=== PATIENT | female | born 1975 | race Caucasian/White ===

== ENCOUNTER 2017-07-21 14:28 | Emergency (ER) | payer MEDICAID ==
[2017-07-21] MEDS ORDERED: KETOROLAC 30 MG/ML VIAL IVP ONE (15:01)
--- NOTE | 2017-07-21 15:03 | Emergency Department Record ---
History of Present Illness - General Chief complaint: Flank Pain Stated complaint: PAIN IN RT SIDE Time Seen by Provider: 07/21/17 14:50 Source: Patient Mode of Arrival: Ambulatory Limitations: No limitations - History of Present Illness Initial comments: 42 yo female presents with right side right upper quadrant pain for about one week. No fevers, cough, shortness of breath, vomiting, diarrhea, hematuria. The pain does mildly increase with eating. She is a smoker. No control. No changes in bowel movements. She is taking ibuprofen without improvement. No rash. No Flu like symptoms. She has noted the pain with changes in position and lifting at work but denies injury. MD Complaint: Other (RUQ side pain) Onset/Timin -: Days(s) Radiation: R flank Severity scale (1-10): 7 Quality: Aching, Sharp Consistency: Constant Improves with: Other Worsens with: Movement, Other Patient : No Associated Symptoms: Denies other symptoms - Related Data Previous Rx's Medication Instructions Recorded Cyclobenzaprine HCl [Flexeril] 5 mg PO TID #20 tab 07/21/17 Hydrocodone/Acetaminophen [Hudson 1 each PO Q8H #10 tablet 07/21/17 5-325 Tablet] Allergies Allergy/AdvReac Type Severity Reaction Status Date / Time No Known Drug Allergies Allergy Verified 07/21/17 14:40 Travel Screening - Travel/Exposure Within Last 30 Days Have you traveled within the last 30 days?: No - Travel/Exposure Within Last Year Have you traveled outside the [place] in the last year?: No - Additonal Travel Details Have you been exposed to anyone with a communicable illness?: No - Travel Symptoms Symptom Screening: None Review of Systems Constitutional: Denies: Chills, Fever, Malaise, Weakness Eyes: Denies: Eye discharge, Eye pain, Vision change ENT: Denies: Congestion, Throat pain Respiratory: Denies: Cough, Dyspnea, Hemoptysis, Stridor, Wheezes Cardiovascular: Denies: Chest pain, Palpitations, Syncope Endocrine: Denies: Fatigue Gastrointestinal: Reports: Abdominal pain. Denies: Constipation, Diarrhea, Hematemesis, Hematochezia, Melena, Nausea, Vomiting Genitourinary: Denies: Dysuria, Urgency Musculoskeletal: Reports: Back pain (right flank). Denies: Arthralgia, Joint swelling, Myalgia Skin: Denies: Bruising, Change in color, Rash Neurological: Denies: Headache, Numbness, Weakness Psychiatric: Denies: Anxiety Hematological/Lymphatic: Denies: Blood Clots, Easy bleeding, Easy bruising, Swollen glands Past Medical History - SOCIAL HISTORY Smoking Status: Light tobacco smoker (<10/day) Alcohol Use: Rare Drug Use: None - RESPIRATORY Hx Respiratory Disorders: Yes Hx Bronchitis: Yes - CARDIOVASCULAR Hx Cardio Disorders: No - NEURO Hx Neuro Disorders: Yes Hx Dizziness: Yes - GI Hx GI Disorders: No - Hx Genitourinary Disorders: No - ENDOCRINE Hx Endocrine Disorders: No - MUSCULOSKELETAL Hx Musculoskeletal Disorders: No - PSYCH Hx Psych Problems: No - HEMATOLOGY/ONCOLOGY Hx Hematology/Oncology Disorders: No Family Medical History Any Significant Family History?: No Physical Exam - General General Appearance: Alert, Oriented x3, Cooperative, No acute distress Limitations: No limitations - Head Head exam: Normal inspection - Eye Eye exam: Normal appearance, PERRL. negative: Conjunctival injection, Scleral icterus - ENT ENT exam: Normal exam, Mucous membranes moist, Normal orophraynx Ear exam: Normal external inspection. negative: External canal tenderness Nasal Exam: Normal inspection. negative: Discharge, Sinus tenderness Mouth exam: Normal external inspection, Tongue normal Teeth exam: Normal inspection. negative: Dental caries Throat exam: Normal inspection. negative: Tonsillar erythema, Tonsillomegaly, Tonsillar exudate, R peritonsillar mass, L peritonsillar mass - Neck Neck exam: Normal inspection, Full ROM. negative: Lymphadenopathy, Tenderness - Respiratory Respiratory exam: Normal lung sounds bilaterally. negative: Respiratory distress - Cardiovascular Cardiovascular Exam: Regular rate, Normal rhythm, Normal heart sounds Peripheral Pulses: 2+: Radial (R), Radial (L) - GI/Abdominal GI/Abdominal exam: Soft, Tenderness (tender but soft in the RUQ, remainder of the abdomen is soft) - Rectal Rectal exam: Deferred - exam: Deferred - Extremities Extremities exam: Normal inspection, Full ROM. negative: Calf tenderness, Pedal edema, Tenderness - Back Back exam: Reports: Normal inspection, CVA tenderness (R), Full ROM. Denies: Muscle spasm, Rash noted, Tenderness - Neurological Neurological exam: Alert, Normal gait, Oriented X3, Reflexes normal - Psychiatric Psychiatric exam: Normal affect, Normal mood - Skin Skin exam: Dry, Intact, Normal color, Warm Course Vital Signs 01/25/18 14:31 Temperature 98.2 F Pulse Rate 93 H Respiratory 16 Rate Blood Pressure 121/88 Pulse Ox 98 - Reevaluation(s) Reevaluation #1: 07/21/17 15:03 Vitals reviewed PERC negative 07/21/17 15:31 No acute changes on the CBC or BMP. 07/21/17 15:59 No acute changes on the CMP The patient is returning from [place]. 07/21/17 16:50 UA is negative 07/21/17 17:02 The pain has components of being musculo-skeletal with rib tenderness and pain with changes in position and lifting. I recommend rest and avoid aggravating movements for a few day.s We discussed DC home, rest, no lifting, off work 2 days given she does a lot of heavy lifting at work. Return for a recheck if not improved and return sooner if worse or any new concerns. 07/21/17 17:04 Medical Decision Making - Lab Data Result diagrams: 07/21/17 15:09 07/21/17 15:09 Disposition Disposition: Discharge Clinical Impression: Right upper quadrant pain Disposition: Home, Self-Care Condition: (1) Good Instructions: Flank Pain (ED) Additional Instructions: Rest, avoid lifting or movements that increase the pain Call your doctor for a recheck if not improving Return if worse, fever, cough, vomiting, abdominal pain or any new concerns Prescriptions: Cyclobenzaprine HCl [Flexeril] 5 mg PO TID #20 tab Hydrocodone/Acetaminophen [Hudson 5-325 Tablet] 1 each PO Q8H #10 tablet Forms: Patient Portal Access Time of Disposition: 17:03 Quality - Quality Measures Quality Measures: N/A - Blood Pressure Screening Does Patient Have Any of the Following: No Blood Pressure Classification: Normal BP Reading Systolic Measurement: 105 Diastolic Measurement: 74 Screening for High Blood Pressure: < Normal BP, F/U Not Required > [G8783]
[2017-07-21] MEDS ORDERED: SODIUM CHLORIDE 0.9% 500 ML IV ONE (15:11)
[2017-07-21 15:16] LABS: EOS % 2.8 % (0-6); GRAN % 74.1 % (47-80); HEMATOCRIT 46.5 % (35.0-47.0); HEMOGLOBIN 15.7 gm/dl (11.6-16.0); LYMPH % 16.5 % (16-45); MEAN CELL VOLUME 94.5 fl (81-97); MEAN CORPUSCULAR HEMOGLOBIN 31.9 pg (27-33); MEAN CORPUSCULAR HGB CONC 33.8 g/dl (32-36); MEAN PLATELET VOLUME 9.9 fl (7.4-10.4); MONO % 5.6 % (0-9); PLATELET COUNT 380 K/uL (130-400); RED BLOOD COUNT 4.92 M/uL (3.80-5.40); RED CELL DISTRIBUTION WIDTH 12.9 % (11.5-14.5)
[2017-07-21 15:26] LABS: BLOOD UREA NITROGEN 10 mg/dL (6-20)
[2017-07-21 15:27] LABS: CREATININE 0.5 mg/dL (0.5-0.9); EST GLOMERULAR FILTRATION RATE > 60 mL/min; TOTAL PROTEIN 8.2 g/dL (6.6-8.7)
[2017-07-21 15:29] LABS: GLUCOSE,RANDOM 111 mg/dL (74-109)
[2017-07-21 15:31] LABS: ALB/GLOB RATIO 1.6 (1.1-1.8); ALT/SGPT 6 U/L (<33); AST/SGOT 14 U/L (10.0-35.0)
[2017-07-21 15:32] LABS: ALKALINE PHOSPHATASE 109 U/L (35-104); LIPASE 25 U/L (13-60)
[2017-07-21 16:07] LABS: URINE APPEARANCE CLEAR; URINE BILIRUBIN NEGATIVE (NEGATIVE); URINE BLOOD NEGATIVE (NEGATIVE); URINE COLOR YELLOW; URINE GLUCOSE (UA) NEGATIVE (NEGATIVE); URINE KETONE NEGATIVE (NEGATIVE); URINE LEUKOCYTE ESTERASE NEGATIVE (NEGATIVE); URINE NITRITE NEGATIVE (NEGATIVE); URINE PROTEIN NEGATIVE (NEGATIVE); URINE UROBILINOGEN 0.2 E.U./dL (0.20 - 1.00)
[2017-07-21 16:10] LABS: HCG,QUALITATIVE URINE NEGATIVE (NEGATIVE)
--- NOTE | 2017-07-22 22:25 | ULTRASOUND REPORT ---
EXAM: ULTRASOUND ABDOMEN, COMPLETE HISTORY: RIGHT UPPER QUADRANT PAIN. TECHNIQUE: Complete real-time ultrasound examination of the abdomen. Preliminary report provided by [facility]. COMPARISON: None. FINDINGS: The majority of the pancreas is visualized and appears negative with no pancreatic mass or peripancreatic fluid collection identified. Abdominal aorta appears negative with no aneurysm seen. The IVC was negative, as seen. The liver appears negative with no hepatic mass or intrahepatic biliary dilatation seen. The right kidney measures 10.7 cm in length with no hydronephrosis evident. Gallbladder is incompletely distended with the living coach noting that the patient was not NPO for this emergency study. Thick- walled appearance of the gallbladder diffusely is nonspecific and may just be due to the incomplete distention. As visualized, no gallstones identified and no pericholecystic fluid collection evident. The common duct was seen and was of normal caliber. The left kidney measures 12.1 cm in length with no hydronephrosis evident. The spleen was negative, as seen. IMPRESSION: 1. GALLBLADDER RELATIVELY CONTRACTED AND NOT FULLY EVALUATED SONOGRAPHICALLY. DIFFUSE GALLBLADDER WALL PROMINENCE MAY SIMPLY BE DUE TO THE INCOMPLETE DISTENTION. NO OBVIOUS GALLSTONES OR BILIARY DILATATION SEEN. 2. THE REMAINDER OF THE ABDOMEN ULTRASOUND WAS NEGATIVE. NO HYDRONEPHROSIS EVIDENT. JOB NUMBER: [id number] [facility]
== END 2017-07-21 17:15 | disposition home or self-care (01) ==
LOC: ER 14:28
DX: R10.11 Right upper quadrant pain (principal)
CPT/HCPCS: 99284 ×2; 96374; 83690; 85025; 80053; 81003; 81025; 76700; J1885